=== PATIENT | male | born 1975 | race Caucasian/White ===

== ENCOUNTER 2018-09-06 11:50 | Observation (INO) | payer MEDICAID, SELFPAY ==
[2018-09-06] VITALS (11 sets, daily range): BP systolic 116–153; BP diastolic 69–106; PULSE 105–123; RESP 14–18; TEMP 36.4–37.6; O2SAT 91–98; BMI 27.3
--- NOTE | 2018-09-06 12:12 | CT_ITS ---
STUDY: CT ABDOMEN AND PELVIS WITH CONTRAST REASON FOR EXAM: Male, 43 years old. Abdominal pain with vomiting. Abdominal pain is centered in the right lower abdomen. RADIATION DOSAGE (If Supplied By Facility): CTDIvol = ( 7.16 ) mGy, DLP = ( 771.31 ) mGycm TECHNIQUE: Transaxial images were obtained from the dome of the diaphragm to the symphysis pubis with oral contrast. 100ML ml of Isovue 300 contrast was administered. Sagittal and coronal images were reconstructed. Individualized dose optimization techniques were used for this CT. COMPARISON: None. FINDINGS: The visualized lung bases are unremarkable. The visualized portions of the heart are within normal limits. Tiny subcentimeter cyst of the anterior left hepatic lobe is evident on image 18, doubtful clinical significance. No solid hepatic masses. Normal gallbladder and extrahepatic biliary system. Normal spleen. Normal pancreas. Normal bilateral adrenal glands. Normal right kidney. Exophytic, cortical cyst of the inferior left kidney is seen on image 58. Normal visualized stomach. Normal small intestine. Normal colon. The appendix is dilated with thick, enhancing wall. The appendix measures up to 11-12 mm. There is periappendiceal stranding particularly at the appendiceal base. Appendiceal wall thickening extends into the medial cecal wall (axial image 79). No pneumoperitoneum or focal fluid collection demonstrated. Enlarged lymph nodes in the right lower quadrant measure up to 9 mm in short axis. Normal abdominal aorta. Normal inferior vena cava. Normal retroperitoneum. Normal urinary bladder. Normal abdominal wall. Normal osseous structures. CT/Abdomen/Pelvis WITH Contrast IMPRESSION: 1. Dilated, thick-walled appendix with periappendiceal stranding suggesting appendicitis. Appendiceal wall thickening extends into the medial cecal wall, which could be infectious/inflammatory/reactive related although appendiceal orifice neoplasm cannot be excluded. Mild right lower quadrant adenopathy (measuring up to 9 mm in short axis). 2. No focal fluid collection or pneumoperitoneum demonstrated. 3. Inferior left renal cortical cyst. Electronically Signed: Arvin Middleton MD at 14:36 EDT , Service support ,
[2018-09-06] MEDS: Ondansetron 4 MG/2 ML Vial IV (12:20)
[2018-09-06] MEDS: 0.9% Normal Saline 1,000 ML 1000 ML IV (12:20)
[2018-09-06 12:24] LABS: Absolute Lymphocyte Count 1.43 X10^3/ul (0.83-4.51); Absolute Neutrophil Count 11.5 X10^3/uL (2.0-7.7); Basophil# 0.01 X10^3/uL; Basophil% 0.1 % (0-1); Eosinophil# 0.02 X10^3/uL; Eosinophils% 0.1 % (0-5); Hematocrit 47.2 % (40-54); Hemoglobin 16.5 g/dl (13.0-16.5); Lymphocyte # 1.43 X10^3/ul (4.0); Lymphocyte % 9.8 % (19-41); Mean Corpuscular Hgb 29.2 pg (27.0-32.0); Mean Corpuscular Volume 83.5 fL (80-94); Mean Platelet Vol. 10.2 fl (6.2-12.0); Monocyte# 1.54 X10^3/uL; Monocyte% 10.6 % (0-10); Neutrophil # 11.54 X10^3/uL (2.7-7.7); Neutrophil % 79.1 % (47-70); Platelet Count 337 K/mm3 (150-450); RBC Distribution Width CV 13.7 % (11.6-14.6); Red Blood Count 5.65 M/mm3 (4.6-6.2); White Blood Count 14.6 K/mm3 (4.4-11.0)
[2018-09-06 12:25] LABS: Differential Indicated SCAN CRITERIA MET; POSITIVE COUNT NO; POSITIVE DIFFERENTIAL YES; POSITIVE MORPHOLOGY NO
[2018-09-06 12:44] LABS: ALB/GLOB Ratio 0.9 RATIO (0.9-2.4); AST(SGOT) 14 U/L (15-37); Alanine Aminotransfer ALT/SGPT 33 U/L (16-61); Albumin, Serum 3.9 g/dL (3.2-5.0); Alkaline Phosphatase 55 U/L (45-117); Anion Gap 10 (5-15); BUN 15 mg/dL (7-18); BUN/Creat Ratio 17.6 RATIO (10-20); Calcium,Total 8.6 mg/dL (8.5-10.1); Chloride 100 mmol/L (98-107); Creatinine, Serum 0.85 mg/dL (0.70-1.30); EST Glomerular Filtration Rate 104 mL/min (>60); Est Glom Filt Rate - Afr Amer 125 mL/min (>60); Estimated Creatinine Clearance 78.43 ml/min; Globulin 4.3 g/dL (2.2-4.2); Glucose 85 mg/dL (74-106); Lipase 59 U/L (73-393); Potassium 3.5 mmol/L (3.5-5.1); Protein, Total 8.2 g/dL (6.4-8.2); Sodium Level 138 mmol/L (136-145)
[2018-09-06] MEDS: proMETHazine 25 MG/ML Syringe 12.5 MG IV (13:13)
[2018-09-06] MEDS: Morphine 4 MG/ML Syringe IV (14:30)
[2018-09-06 14:49] LABS: Bacteria 0 SEEN /hpf (None Seen); Color, Urine Yellow (Yellow); Glucose, Dipstick Normal (Normal); Ketone-Dipstick 50 mg/dl (Negative); Leukocyte Esterase-Dipstick Negative /ul (Negative); Nitrite-Dipstick Negative (Negative); Occult Blood-Urine Negative /ul (Negative); Protein-Dipstick 15 mg/dl (Negative); Red Blood Cells-Urine 0 SEEN /hpf (0-5); Urine Bilirubin Dipstick Negative (Negative); Urine Clarity Sl. Cloudy (Clear); Urine Urobilinogen Normal (Normal); White Blood Cells 0 SEEN /hpf (0-5)
[2018-09-06 14:56] LABS: Mucous, Urine RARE /hpf (<or=2+); Squamous Epithelial Cells - UA 0-5 SEEN /hpf (0-5)
--- NOTE | 2018-09-06 14:57 | ED.VISSUMM ---
- ER Visit Summary Date of Service: 09/06/18 Chief Complaint: [Abdominal pain] History of Present Illness: The patient is a 43 M [presents the emergency department abdominal pain for 2 days. Patient also complains of a sore throat. Patient had frequent nausea and vomiting. Patient states he had one loose stool. He denies any fever. Has had decreased appetite. Patient denies urinary symptoms. Patient's not had any prior surgeries.] Physical Examination: HEENT-PERRLA, EOMI. Cranial nerves II through XII grossly intact. TMs clear. Mucous membranes moist. No adenopathy. Cardiovascular-regular rate and rhythm without murmur or ectopy Lungs-clear to auscultation, chest wall stable without crepitus or subcu emphysema Abdomen-normoactive bowel sounds, soft. Patient has tenderness palpation over right lower quadrant with guarding. Positive Rovsing sign. There is no rebound, rigidity, or perineal signs. Extremities-intact ?4, normal range of motion, normal pulses, atraumatic [] Test Results: [CBC with differential obtained showed a white count of 14.6, heme globin 16.5, hematocrit 47, platelets 337. Chemistries were normal. LFTs normal. Lipase was normal. Urinalysis is pending. CT scan of the abdomen pelvis showed acute appendicitis.] Emergency Department Course and Treatment: [Patient was medicated with morphine and Zofran. Patient was started on Zosyn IV. Case was discussed with surgeon on-call Dr. Rebecca Rich who will present to the emergency department to see patient.] Treatment Plan: [Admit for surgical intervention] Disposition: [Admit] Impression: [Acute appendicitis] This note was generated with [employer] dictation software. It may contain incorrect words, spelling, and punctuation that were not noted in review of the chart prior to signing ED Disposition - Plan for ED Patient: Chief Complaint: General Illness Referrals: Scotty Wooten DO [Primary Care Provider] -
--- NOTE | 2018-09-06 15:21 | NURSING ---
SURGERY THEN [address] APPENDICITIS
--- NOTE | 2018-09-06 15:21 | PCM.HP.BLA ---
History and Physical Date of Admission: 09/06/18 Chief Complaint: abdominal pain since History of Present Illness: 43 y/o WM presents with abdominal pain since . He seems to have a learning disability, but he points to the lower abdomen but cannot get detailed description of pain. He also has Mansoor's syndrome, a hereditary muscular progressive spastic disorder. Has had nausea/emesis. Denies fevers. His mother answers questions for him. He presents to [facility] ED. WBC is 14.6K with left shift of differential. CT scan - dilated with thick enhancing wall - 11 to 12 mm, periappendiceal stranding, wall thickening extends to medial cecal wall Past Medical History: Mansoor's syndrome Past Surgical History: denies previous surgery Medications: denies taking chronic medications, occasional ibuprofen and/or acetaminophen Allergies: Has no known drug allergies Social history: TOB use denies member of [facility] Review of Systems: General - denies fevers Cardiovascular denies chest pain, denies history of heart attack Pulmonary denies shortness of breath, denies coughing up blooda Gastrointestinal as per HPI, denies blood in stools, has known swallowing disorder Neurological has Mansoor's syndrome Genitourinary has some discomfort with urination, denies blood in urine Hematological denies spontaneous/prolonged bleeding Skin denies open non healing wounds Musculoskeletal has Mansoor's syndrome Endocrine denies diabetes Psychological denies hallucinations Physical examination: Vital signs Temp 99.6F HR 121 BP 153/106 RR 18 General WD/WN WM in no apparent distress, alert and oriented, not septic appearing HEENT Normocephalic. EOM intact with sclera clear and no icterus noted. Neck is supple with no jugular venous distention noted. Trachea is midline. Lungs Fair inspiration upon command. normal breath sounds in all lung youngblood. No rales/rhonchi/wheezing noted. No labored breathing noted, such as retractions. Heart normal S1 and S2 auscultated. No rubs/clicks/murmurs noted. Abdomen soft and protuberant but tender in the lower quadrant, mostly right with rebound tenderness, hypoactive bowel sounds Extremities no calf tenderness noted. No pitting edema noted. Spasticity of lower extremities Genitourinary/Rectal deferred Skin normal skin integrity. Neurological spasticity of lower extremities Psychological normal affect, patient seems learning disabled Impression: abdominal pain appendicitis by CT scan leukocytosis Discussion/Plan: I have discussed the above with the patient and his mother who is present with him I have offered the patient the procedure of laparoscopic appendectomy, could be converted to open procedure I have explained the procedure to them. I have counseled the patient as to the risks of the procedure, including but not limited to: infection, bleeding, injury to any blood vessels/nerves, scar tissue, injury to any intraabdominal organs, injury to kidney/ureters, injury to bowel/bladder, intraabdominal abscess/bleeding, hernias at incisional sites, wound infections, possible open procedure, complications of anesthesia, postoperative pneumonia/cardiac problems/blood clots etc. they understand. Given the patient's neuromuscular disorder, I have explained to the patient and his mother, that [facility] is a community hospital. If his medical morbidities become more complicated beyond the capacities of this hospital, this may require transfer to another larger medical facility. Thus, I have offered for patient to be transferred prior to surgery to a larger facility to avoid postoperative transfer, etc. The patient and his mother prefer to stay at [facility] for his surgery. Thus will proceed with above. I have answered all questions to their satisfaction and they have no further questions.
--- NOTE | 2018-09-06 15:36 | HP.PCM_ITS ---
History and Physical Date of Admission: 09/06/18 Chief Complaint: abdominal pain since History of Present Illness: 43 y/o WM presents with abdominal pain since . He seems to have a learning disability, but he points to the lower abdomen but cannot get detailed description of pain. He also has Mansoor's syndrome, a hereditary muscular progressive spastic disorder. Has had nausea/emesis. Denies fevers. His mother answers questions for him. He presents to [facility] ED. WBC is 14.6K with left shift of differential. CT scan - dilated with thick enhancing wall - 11 to 12 mm, periappendiceal stranding, wall thickening extends to medial cecal wall Past Medical History: Mansoor's syndrome Past Surgical History: denies previous surgery Medications: denies taking chronic medications, occasional ibuprofen and/or acetaminophen Allergies: Has no known drug allergies Social history: TOB use denies member of [facility] Review of Systems: General - denies fevers Cardiovascular denies chest pain, denies history of heart attack Pulmonary denies shortness of breath, denies coughing up blooda Gastrointestinal as per HPI, denies blood in stools, has known swallowing disorder Neurological has Mansoor's syndrome Genitourinary has some discomfort with urination, denies blood in urine Hematological denies spontaneous/prolonged bleeding Skin denies open non healing wounds Musculoskeletal has Mansoor's syndrome Endocrine denies diabetes Psychological denies hallucinations Physical examination: Vital signs Temp 99.6F HR 121 BP 153/106 RR 18 General WD/WN WM in no apparent distress, alert and oriented, not septic appearing HEENT Normocephalic. EOM intact with sclera clear and no icterus noted. Neck is supple with no jugular venous distention noted. Trachea is midline. Lungs Fair inspiration upon command. normal breath sounds in all lung youngblood. No rales/rhonchi/wheezing noted. No labored breathing noted, such as retractions. Heart normal S1 and S2 auscultated. No rubs/clicks/murmurs noted. Abdomen soft and protuberant but tender in the lower quadrant, mostly right with rebound tenderness, hypoactive bowel sounds Extremities no calf tenderness noted. No pitting edema noted. Spasticity of lower extremities Genitourinary/Rectal deferred Skin normal skin integrity. Neurological spasticity of lower extremities Psychological normal affect, patient seems learning disabled Impression: abdominal pain appendicitis by CT scan leukocytosis Discussion/Plan: I have discussed the above with the patient and his mother who is present with him I have offered the patient the procedure of laparoscopic appendectomy, could be converted to open procedure I have explained the procedure to them. I have counseled the patient as to the risks of the procedure, including but not limited to: infection, bleeding, injury to any blood vessels/nerves, scar tissue, injury to any intraabdominal organs, injury to kidney/ureters, injury to bowel/bladder, intraabdominal abscess/bleeding, hernias at incisional sites, wound infections, possible open procedure, complications of anesthesia, postoperative pneumonia/cardiac problems/blood clots etc. they understand. Given the patient's neuromuscular disorder, I have explained to the patient and his mother, that [facility] is a community hospital. If his medical morbidities become more complicated beyond the capacities of this hospital, this may require transfer to another larger medical facility. Thus, I have offered for patient to be transferred prior to surgery to a larger facility to avoid postoperative transfer, etc. The patient and his mother prefer to stay at [facility] for his surgery. Thus will proceed with above. I have answered all questions to their satisfaction and they have no further questions.
--- NOTE | 2018-09-06 16:17 | OP.PN_ITS ---
Immediate Post-Op Note Date of Procedure: 09/06/18 Primary Surgeon/Physician: Rebecca Rich co founder and cto: NOT,DEFINED Pre-Operative Diagnosis: appendicitis Post-Operative Diagnosis: acute appendicitis with localized peritonitis Surgery/Procedure Performed:: laparoscopic appendectomy Description of Surgical Findings:: acute appendicitis - not perforated, slightly cloudy peritoneal fluid noted Estimated Blood Loss: < 5 ml Specimen's removed: appendix Type of Anesthesia:: General ASA Class: ASA2 Plus Emergency - Admit VTE Documentation VTE Present on Admission: Yes VTE Mechan Device Prophylaxis: SCD's
--- NOTE | 2018-09-06 17:00 | APP_PTH ---
PATIENT: ABDULLAHI LUCIO LOC: MS3 U#:[id number] AGE/SX: 43/M ROOM: ID316 RE09/06/[address]: Dr. Rebecca Rich MD : 1975 BED: 1 DIS: 09/07/2018 SPEC #: [id number] RECD: 09/08/18 09:19 STATUS: SWETA REAjay #: [id number] YANELY: 09/06/18 17:[address]: Rebecca Rich DEPT: SURGICAL PATHOLOGY RECD BY: Samson Leiva ENTERED: 09/08/18 11:41 SP TYPE: APPENDIX OTHR DR: Dr. Scotty Wooten, DO Tissues: Appendix, NOS Procedures: Surgery Specimen Level III HEADER OPERATION: Laparoscopic, appendectomy PRE-OP DIAGNOSIS: Acute appendicitis TISSUE SUBMITTED: Appendix MICROSCOPIC DIAGNOSIS Appendix: Acute appendicitis and periappendicitis. ASH:minnie 09/09/18 MICROSCOPIC DESCRIPTION Slides are reviewed. GROSS DESCRIPTION Received is one container labeled with the patient's name and designated appendix. The specimen consists of an appendix measuring 6.5 cm in length and up to 1 cm in average diameter. 2 cm away from the tip, the appendix is disrupted most likely site of rupture. The serosa is congested. The attached periappendiceal adipose tissue measures up to 1.5 cm in width. The lumen is pinpoint and do not reveal any fecalith. Funeral Home Director sections are submitted in one cassette. / SJ:minnie 09/08/18 TC:2 CPT: 70574
[2018-09-06] MEDS: Bupiv/Epi 0.5% Mpf 30 ML Vial (17:15)
--- NOTE | 2018-09-06 17:25 | PCM.OPRPT ---
Report of Operation Date of Procedure: 09/06/18 Pre-Operative Diagnosis: appendicitis Post-Operative Diagnosis: acute appendicitis with localized peritonitis Surgery/Procedure Performed:: laparoscopic appendectomy Description of Surgical Findings:: acute appendicitis - not perforated, slightly cloudy peritoneal fluid noted technical delivery manager: NOT,DEFINED Type of Anesthesia:: General Anesthesiologist: Lyric Seymour Specimen's removed: appendix Estimated Blood Loss (mL): < 5 ml Fluids Replaced: 1000 ml RL Description of Procedure: After informed consent was obtained, the patient was brought into the operating room and placed in the supine position on the operating table. Appropriate time out protocol was followed. The patient was then placed under general anesthesia. The patient?s abdomen was then prepped with a sterile surgical skin preparation and sterile surgical drapes were placed. The infraumbilical skin fold was grasped with penetrating clamps and the skin and subcutaneous tissues were infiltrated with 0.5% marcaine with epinephrine. A skin incision was then made. A Veress needle was then inserted into the intraabdominal cavity and checked to be in the proper position with a normal saline drop test. A CO2 pneumoperitoneum was then created. Once this was achieved, the Veress needle was removed and a 5 mm trocar was placed in its stead. A 5 mm laparoscope was then inserted into the trocar. Careful examination of the intraabdominal contents was then done. There was no evidence of injury to any internal organs from placement of the Veress needle or the trocar. Under direct visualization, a 12mm suprapubic trocar and a 5mm left lower quadrant trocar was then placed into the intraabdominal cavity. The skin and subcutaneous tissues at these sites were first infiltrated with 0.5% marcaine with epinephrine. Attention was then directed to the right lower quadrant. The appendix was visualized. It was grossly enlarged and erythematous. The mesentery of the appendix was taken down by cauterizing the tissue from the free edge to the base of the appendix with the Kleppinger device. Once the base of the appendix was freed of surrounding tissues, then the linear gastrointestinal stapling device was brought into the abdominal cavity via the 12mm port and placed across the base of the appendix. The stapling device was fired, thus stapling across the base of the appendix and transecting it simultaneously. The appendix was then placed in an Endobag and this was brought out through the suprapubic trocar. The appendix was then forwarded to Pathology for analysis. The appendiceal stump was carefully examined. There was no evidence of any active bleeding or fecal leakage. The surrounding tissues were also examined and there was no evidence of any active bleeding or fecal/bile leakage. The intraabdominal cavity was examined and there was no evidence of further inflammation or tissue abnormality. There was slightly cloudy peritoneal fluid was noted, it was completely aspirated out. The CO2 pneumoperitoneum was released and all trocars were removed intact. The suprapubic fascia was reapproximated with a figure-of-8 vicryl suture. All skin incisions were reapproximated with monocryl suture. Cavilon and steristrips were applied to reinforce skin closure and proper sterile dressings were placed. The patient was then extubated and brought to the Recovery Room in stable condition. - Complications none noted - Admit VTE Documentation VTE Present on Admission: Yes VTE Mechan Device Prophylaxis: SCD's
[2018-09-06] MEDS: Lactated Ringers 1,000 ML 150 ML IV (19:05)
[2018-09-06] MEDS: Piperacil/Tazobactam 3.375 GM/50 ML ML IV (21:53)
[2018-09-06] MEDS: Morphine 2 MG/ML Syringe IV (21:58)
[2018-09-07 02:37] VITALS: BP 110/67; PULSE 109; RESP 16; TEMP 36.6; O2SAT 97
[2018-09-07] MEDS: Lactated Ringers 1,000 ML 150 ML IV (03:40)
[2018-09-07] MEDS: Piperacil/Tazobactam 3.375 GM/50 ML ML IV (05:47)
[2018-09-07 07:59] LABS: Absolute Lymphocyte Count 0.92 X10^3/ul (0.83-4.51); Absolute Neutrophil Count 5.3 X10^3/uL (2.0-7.7); Hematocrit 43.7 % (40-54); Hemoglobin 14.6 g/dl (13.0-16.5); Lymphocyte # 0.92 X10^3/ul (4.0); Lymphocyte % 13.3 % (19-41); Mean Corp Hgb Conc 33.4 g/gl (32-36); Mean Corpuscular Hgb 28.8 pg (27.0-32.0); Mean Corpuscular Volume 86.2 fL (80-94); Mean Platelet Vol. 10.4 fl (6.2-12.0); Monocyte# 0.72 X10^3/uL; Monocyte% 10.4 % (0-10); Neutrophil # 5.27 X10^3/uL (2.7-7.7); POSITIVE COUNT NO; POSITIVE DIFFERENTIAL NO; POSITIVE MORPHOLOGY NO; Platelet Count 301 K/mm3 (150-450); RBC Distribution Width CV 13.5 % (11.6-14.6); RBC Distribution Width SD 42.6 fl (35.1-43.9); Red Blood Count 5.07 M/mm3 (4.6-6.2); White Blood Count 6.9 K/mm3 (4.4-11.0)
[2018-09-07 08:00] VITALS: PULSE 86
[2018-09-07 08:20] VITALS: O2SAT 97
[2018-09-07 08:32] VITALS: BP 133/74; PULSE 86; RESP 18; TEMP 36.6; O2SAT 97
--- NOTE | 2018-09-07 11:24 | PCM.DC.APPY ---
Discharge Diet: - - regular diet - thickened foods as per recommendations Discharge Activity: Return to Normal Activity Lifting Restrictions: no lifting greater than 20 pounds for two weeks Call your doctor if your incision/area has: Continuous Slow Oozing, Foul Smelling Discharge Additional Dressing/Incision Instructions:: Leave dresssings in place. May get wet in shower. Do not soak - no tub baths/swimming Additional Instructions: For pain control without narcotics - take 600 mg of ibuprofen Then in three hours take 650 mg of acetominophen, Then in three hours take 600 mg ibuprofen continue the above pattern for about 2 days Take narcotics only for severe or breakthrough pain FOR URGENT QUESTIONS: Can contact hospital fiberglass dowel drawing operator and have them page Dr. Rich Medications to take at Discharge Amoxicillin/Potassium Clav [Augmentin 875-125 Tablet] 1 ea PO BID 5 Days #10 tab 09/07/18 Hydrocodone Bitart/Apap 5-325 [Wykoff 5MG-325MG] 1 tab PO Q8H PRN PRN 3 Days #7 tab 09/07/18 Allergies/Adverse Reactions: Allergies No Known Allergies Allergy (Verified 09/06/18 11:54) The following prescriptions were given: Hydrocodone Bitart/Apap 5-325 [Wykoff 5MG-325MG] 1 tab PO Q8H PRN PRN 3 Days #7 tab PRN Reason: Pain Amoxicillin/Potassium Clav [Augmentin 875-125 Tablet] 1 ea PO BID 5 Days #10 tab Primary Care Physician: Scotty Wooten DO [Primary Care Provider] - Test Results: Test results from this visit will be discussed in further detail at your follow-up appointment, if applicable. Please Follow Up With: Rebecca Rich MD - call When: to be seen on Saturday, , please call for time, thank you
--- NOTE | 2018-09-07 11:28 | DCINST_ITS ---
Discharge Diet: - - regular diet - thickened foods as per recommendations Discharge Activity: Return to Normal Activity Lifting Restrictions: no lifting greater than 20 pounds for two weeks Call your doctor if your incision/area has: Continuous Slow Oozing, Foul Smelling Discharge Additional Dressing/Incision Instructions:: Leave dresssings in place. May get wet in shower. Do not soak - no tub baths/swimming Additional Instructions: For pain control without narcotics - take 600 mg of ibuprofen Then in three hours take 650 mg of acetominophen, Then in three hours take 600 mg ibuprofen continue the above pattern for about 2 days Take narcotics only for severe or breakthrough pain FOR URGENT QUESTIONS: Can contact hospital road grader operator and have them page Dr. Rich Medications to take at Discharge Amoxicillin/Potassium Clav [Augmentin 875-125 Tablet] 1 ea PO BID 5 Days #10 tab 09/07/18 Hydrocodone Bitart/Apap 5-325 [Newell 5MG-325MG] 1 tab PO Q8H PRN PRN 3 Days #7 tab 09/07/18 Allergies/Adverse Reactions: Allergies No Known Allergies Allergy (Verified 09/06/18 11:54) The following prescriptions were given: Hydrocodone Bitart/Apap 5-325 [Newell 5MG-325MG] 1 tab PO Q8H PRN PRN 3 Days #7 tab PRN Reason: Pain Amoxicillin/Potassium Clav [Augmentin 875-125 Tablet] 1 ea PO BID 5 Days #10 tab Primary Care Physician: Scotty Wooten DO [Primary Care Provider] - Test Results: Test results from this visit will be discussed in further detail at your follow- up appointment, if applicable. Please Follow Up With: Rebecca Rich MD - call When: to be seen on Saturday, , please call for time, thank you
[2018-09-07 14:50] VITALS: BP 124/79; PULSE 97; RESP 18; TEMP 37; O2SAT 96
== END 2018-09-07 15:11 | disposition home or self-care (01) ==
LOC: ED 12:39 → SDC 15:28 → AC 15:30 → SDC 16:10 → MS3 09-07 11:37
PROVIDERS: Admitting Provider Surgery; Emergency Provider Emergency Medicine; Family Provider Family Medicine; PCP Family Medicine; Visit Provider Surgery
PROC: 0DTJ4ZZ Resection of Appendix, Percutaneous Endoscopic Approach (ICD-10-PCS; CPT 44970; principal; 2018-09-06 17:00)
DX: K35.80 Unspecified acute appendicitis (principal); R13.12 Dysphagia, oropharyngeal phase
CPT/HCPCS: 00840; 44970; 36415; 74177; 80053; 81001; 83690; 85025; 87880; 88304; 96361; 96365; 96366; 96375; 96376; 99218; 99282; J7030; J7120; Q9967; A4216; G0378; J0330; J2405

== ENCOUNTER → 2024-02-24 | Outpatient (CLI) | payer MEDICAID, SELFPAY ==
[2024-02-24 15:37] LABS: Erythrocyte Sedimentation Rate 2 mm/hr (0-20)
[2024-02-24 15:40] LABS: Absolute Neutrophil Count 2.6 X10^3/uL (2.0-7.7); Basophil# 0.06 X10^3/uL; Eosinophil# 0.15 X10^3/uL; Eosinophils% 2.5 % (0-5); Hematocrit 47.7 % (40-54); Hemoglobin 16.1 g/dL (13.0-16.5); Lymphocyte % 44.1 % (19-41); Mean Corp Hgb Conc 33.8 g/dL (32-36); Mean Corpuscular Hgb 28.8 pg (27.0-32.0); Mean Corpuscular Volume 85.3 fL (80-94); Monocyte# 0.56 X10^3/uL; Monocyte% 9.2 % (0-10); NRBC Flagged by Analyzer 0 % (0-5); Neutrophil # 2.64 X10^3/uL (2.7-7.7); Platelet Count 369 K/mm3 (150-450); RBC Distribution Width CV 13.7 % (11.6-14.6); RBC Distribution Width SD 42.9 fl (35.1-43.9); Red Blood Count 5.59 M/mm3 (4.6-6.2); White Blood Count 6.1 K/mm3 (4.4-11.0)
[2024-02-24 16:05] LABS: ALB/GLOB Ratio 1.1 RATIO (0.9-2.4); AST(SGOT) 31 U/L (15-37); Alanine Aminotransfer ALT/SGPT 70 U/L (16-61); Albumin, Serum 3.9 g/dL (3.2-5.0); Alkaline Phosphatase 46 U/L (45-117); Anion Gap 6 (5-15); BUN 13 mg/dL (7-18); BUN/Creat Ratio 15.9 RATIO (10-20); CRP < 2.90 mg/L (0.0-3.0); Calcium,Total 8.9 mg/dL (8.5-10.1); Chloride 107 mmol/L (98-107); Creatinine, Serum 0.82 mg/dL (0.70-1.30); EST Glomerular Filtration Rate 106 mL/min (>60); Est Glom Filt Rate - Afr Amer 129 mL/min (>60); Globulin 3.4 g/dL (2.2-4.2); Glucose 79 mg/dL (74-106); Lipase 23 U/L (13-75); Potassium 3.8 mmol/L (3.5-5.1); Protein, Total 7.3 g/dL (6.4-8.2); Sodium Level 138 mmol/L (136-145)
[2024-02-24 17:54] LABS: Hemoglobin A1c 5.2 % (3.8-5.6)
== END | disposition home or self-care (01) ==
LOC: BFHLAB 13:05
PROVIDERS: PCP Family Medicine; Referring Provider Family Medicine; Visit Provider Family Medicine
DX: R10.9 Unspecified abdominal pain (principal); R19.5 Other fecal abnormalities; R73.9 Hyperglycemia, unspecified
CPT/HCPCS: 36415; 80053; 83036; 83690; 85025; 85652; 86140

== ENCOUNTER → 2024-03-02 | Outpatient (CLI) | payer MEDICAID, SELFPAY ==
--- NOTE | 2024-03-02 09:32 | RAD_ITS ---
INDICATION: INTERMITTENT VOMITING EXAMINATION/TECHNIQUE: X-RAY - XR Abdomen 1 View COMPARISON: CT dated September 06, 2018 FINDINGS: BOWEL GAS PATTERN: Non-obstructive. No bowel or stomach distention. FREE AIR: Not assessed on a single supine view. ORGANOMEGALY: Not seen. CALCIFICATIONS: No abnormal calcifications observed. LOWER CHEST: No acute pathology. BONES AND SOFT TISSUES: No acute pathology. RAD/Abdomen Single View IMPRESSION: Nonspecific bowel gas pattern. Electronically Signed: Deborah Joseph MD at 9:51 EDT ,
== END | disposition home or self-care (01) ==
LOC: RAD 09:27
PROVIDERS: PCP Family Medicine; Referring Provider Family Medicine; Visit Provider Family Medicine
DX: R10.9 Unspecified abdominal pain (principal); R11.10 Vomiting, unspecified
CPT/HCPCS: 74018